=== PATIENT | male | born 1970 | race Caucasian/White ===

== ENCOUNTER 2020-09-23 20:00 | Emergency (ER) | payer SELFPAY ==
[~2020-09-23] VITALS: Ht 177.8 cm; Wt 70.0 kg
[2020-09-23] MEDS ORDERED: KETOROLAC 30 MG/1 ML IVPush ONE (20:30)
[2020-09-23] MEDS ORDERED: MORPHINE SULFATE 4 MG/ML, 1ML IVPush PRN (20:30)
[2020-09-23] MEDS ORDERED: SODIUM CHLORIDE FLUSH 10ML SYR IVF ONE (20:30)
[2020-09-23] MEDS ORDERED: SODIUM CHLORIDE 0.9% 1,000 ML IV ONE (20:30)
[2020-09-23] MEDS ORDERED: ONDANSETRON 2MG/ML, 2ML IVPush ONE (20:30)
--- NOTE | 2020-09-23 20:39 | NUR ---
PT BIBA. PER EMS PT HAS HAD BILAT FLANK FOR 2 HOURS AND HAS GROIN PRESSURE. PT STATES IT HURTS TO URINATE AND THAT HIS URINE LOOKS CHRISTOPH IN COLOR. PT ABLE TO PROVIDE A URINE SPECIMEN AT THIS TIME, SAMPLE SENT TO LAB. PT RESTING IN [facility], MONITORING IN PLACE, PT STATES PAIN IS 10/10, WCTM.
[2020-09-23] MEDS ORDERED: MORPHINE SULFATE 4 MG/ML, 1ML ONE (20:44)
[2020-09-23] MEDS ORDERED: ONDANSETRON 2MG/ML, 2ML ONE (20:44)
[2020-09-23] MEDS ORDERED: KETOROLAC 30 MG/1 ML ONE (20:44)
[2020-09-23 20:53] LABS: BASOPHILS % (AUTO) 0 % (0-1); EOSINOPHILS % (AUTO) 1 % (1-7); LYMPHOCYTES % (AUTO) 18 % (22-44); MEAN CORPUSCULAR HEMOGLOBIN 30.8 pg (27.5-34.5); MEAN CORPUSCULAR HGB CONC 33.7 g/dL (33.2-36.2); MEAN PLATELET VOLUME 9.2 fL (7.4-10.4); MONOCYTES % (AUTO) 5 % (2-9); NEUTROPHILS % (AUTO) 77 % (42-75); PLATELET COUNT 212 x10^3/uL (130-400); RED BLOOD COUNT 5.45 x10^6/uL (4.38-5.82); RED CELL DISTRIBUTION WIDTH 13.8 % (9.4-14.8)
[2020-09-23 20:54] LABS: ALBUMIN 3.8 g/dL (3.4-5.0); ANION GAP 5 mmol/L (5-15); CALCIUM 9.1 mg/dL (8.5-10.1); CHLORIDE 109 mmol/L (98-107)
[2020-09-23 20:59] LABS: ALANINE AMINOTRANSFERASE 26 U/L (12-78); ALKALINE PHOSPHATASE 102 U/L (45-117); BILIRUBIN,TOTAL 0.2 mg/dL (0.2-1.0); CREATININE 1.14 mg/dL (0.7-1.3); TOTAL PROTEIN 7.6 g/dL (6.4-8.2)
[2020-09-23] MEDS ORDERED: PLEASE ENTER ALLERGIES MC SCH (21:00)
[2020-09-23 21:26] LABS: MD SCAN
[2020-09-23 21:27] LABS: MICROSCOPIC INDICATED
--- NOTE | 2020-09-23 21:53 | NUR ---
TOOK OVER PT CARE. PT RESTING COMFORTABLY AT THIS TIME, IN BED, STATES THE MEDICATION REALLY HELPED WITH THE PAIN AND UNCOMFORTABLE FEELING ON HIS FLANKS BILATERALLY. SIDERAILS UP X2 AND CALL LIGHT WITHIN REACH.
[2020-09-23 22:14] VITALS: BP 158/90
--- NOTE | 2020-09-23 22:25 | NUR ---
PT A&OX4, AND F/U AND D/C INSTRUCTIONS GIVEN TO PT AND HE V/U. PIV D/C'D AND CATH INTACT.
--- NOTE | 2020-09-23 22:26 | NUR ---
PT HAD A PIV TO THE LEFT AC FROM PREVIOUS RN ON ASSIGNMENT IN THIS ROOM. PIV D/C'D AT THIS TIME.
== END 2020-09-23 22:43 | disposition home or self-care (01) ==
LOC: ED 22:15
DX: N13.2 Hydronephrosis with renal and ureteral calculous obstruction (principal); I10 Essential (primary) hypertension; R10.2 Pelvic and perineal pain; R11.2 Nausea with vomiting, unspecified; M54.5 Low back pain; N50.819 Testicular pain, unspecified; I25.10 Atherosclerotic heart disease of native coronary artery without angina pectoris
CPT/HCPCS: 36415; 74176; 80053; 81001; 83690; 85025; 87086; 96361; 96374; 96375; 99284; J1885; J2270; J2405; J7030